=== PATIENT | female | born 1945 | race Caucasian/White ===

== ENCOUNTER 2018-02-15 10:48 | Outpatient (CLI) | payer MEDICARE, BC | END 2018-02-15 10:49 | disposition home or self-care (01) | LOC: BICMAMMO 10:48 | PROVIDERS: ATTEND Internal Medicine Hematology & Oncology | DX: Z12.31 Encounter for screening mammogram for malignant neoplasm of breast (principal); Z85.3 Personal history of malignant neoplasm of breast; Z80.3 Family history of malignant neoplasm of breast | CPT/HCPCS: 77063; 77067 ==

== ENCOUNTER 2019-01-30 12:20 | Outpatient (CLI) | payer MEDICARE, BC ==
--- NOTE | 2019-01-30 14:54 | RAD ---
EXAM: XR Barium Enema Solid Column PROVIDED CLINICAL HISTORY: Incomplete colonoscopy. Rectal bleeding. COMPARISON: None FINDINGS: Resident Services Coordinator image demonstrates a nonspecific bowel gas pattern. Vascular calcifications are seen in the abd ominal aorta and involving the iliac arteries. Mild degenerative changes are seen in the lower lumbar spine. A single contrast barium enema was performed in usual fashion. Contrast was noted to extend to the le titi of the cecum. Scattered colonic diverticuli are seen involving the sigmoid colon. No persistent filling defect or annular constricting lesion is seen within the colon. Postevacuation images demonst rate residual barium throughout the colon. IMPRESSION: 1. Colonic diverticulosis. 2. No annular constricting lesion or definite persisting filling defect is seen throughout the colon.
== END 2019-01-30 12:21 | disposition home or self-care (01) ==
LOC: RAD 12:20
PROVIDERS: ATTEND Internal Medicine Gastroenterology
DX: Z53.9 Procedure and treatment not carried out, unspecified reason (principal); K57.30 Diverticulosis of large intestine without perforation or abscess without bleeding
CPT/HCPCS: 74270

== ENCOUNTER 2019-03-04 11:02 | Outpatient (CLI) | payer MEDICARE, BC ==
--- NOTE | 2019-03-04 12:14 | MMO ---
Bilateral MAMMO Bilat Screen [facility]. CLINICAL HISTORY: Patient is 73 years old and is seen for screening. The patient has the following family history of breast cancer: mother, malignant (generic); paternal grandmother, malignant (generic); paternal aunt, malignant (generic) and niece, malignant (generic). The patient has a history of malignant (generic) at age 63. The patient has a history of bilateral Lumpectomy in October 2000 - Breast cancer. VIEWS: The views performed were: bilateral craniocaudal with tomosynthesis and bilateral mediolateral oblique with tomosynthesis. FILMS COMPARED: The present examination has been compared to prior imaging studies performed at [facility] on 12/04/2014, 01/20/2016, 02/05/2017 and 02/15/2018. This study has been interpreted with the assistance of computer-aided detection. MAMMOGRAM FINDINGS: There are scattered fibroglandular densities. Finding 1: There are areas of architectural distortion with associated post-surgical scars seen in both breasts. Finding 2: There are stable benign appearing calcifications seen in both breasts. There are no suspicious masses, calcifications or areas of architectural distortion. Finding 3: There are benign appearing calcifications seen in both breasts. There are also vascular calcifications. There are no suspicious masses, suspicious calcifications, or new areas of architectural distortion. IMPRESSION: THERE IS NO MAMMOGRAPHIC EVIDENCE OF MALIGNANCY. A ROUTINE FOLLOW-UP MAMMOGRAM IN 1 YEAR IS RECOMMENDED. THE RESULTS OF THIS EXAM WERE SENT TO THE PATIENT. ACR BI-RADS Category 2 - Benign finding MAMMOGRAPHY NOTE: 1. A negative mammogram report should not delay a biopsy if a dominant of clinically suspicious mass is present. 2. Approximately 10% to 15% of breast cancers are not detected by mammography. 3. Adenosis and dense breasts may obscure an underlying neoplasm. Reported by: JOELLE VALDERRAMA MD Electonically Signed: [id number]
== END 2019-03-04 11:03 | disposition home or self-care (01) ==
LOC: BICMAMMO 11:02
PROVIDERS: ATTEND Internal Medicine Hematology & Oncology
DX: Z12.31 Encounter for screening mammogram for malignant neoplasm of breast (principal)
CPT/HCPCS: 77063; 77067

== ENCOUNTER 2019-06-26 12:00 | Inpatient (IN) | payer MEDICARE, BC ==
--- NOTE | 2019-06-27 09:55 | HP ---
HISTORY OF PRESENT ILLNESS: A 73-year-old female who presented with anemia, had a colonoscopy earlier this year, late last year, incomplete due to sigmoid tortuosity and completion barium enema was normal. She had severe iron deficiency anemia and was referred back to Dr. Byrd and performed and the patient has a cecal adenocarcinoma with fungating mass. She has had iron infusion with Dr. Chito wilson3. Pathology reveals moderately differentiated adenocarcinoma of the colon. This is well to moderately differentiated. Plan is to obtain a CAT scan of abdomen and pelvis, chest x-ray, laboratories, and then plan robotic right colectomy. She understands risks and benefits, and consents. We will obtain baseline laboratories. The patient has had preoperative cardiac clearance with Dr. Soares. She is cleared for surgery without further evaluation. The patient is noted to have an echocardiogram in November of 2018, 60% EF, mild MR, normal LA size, normal AV. Left heart catheterization January in 2014, minimal disease. Recent EKG, no acute changes. The patient is asymptomatic from a cardiac standpoint. The patient lives independently, drives and is independently ambulatory. She is accompanied today by her daughter. 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 She has had a thyroidectomy, she is on thyroid replacement. She has had a hysterectomy without oophorectomy. Recent colonoscopy. PAST MEDICAL HISTORY: History of breast cancer, hypertension, depression, thyroid replacement, irritable bowel syndrome. MEDICATIONS: 1. Citrucel twice a day. 2. Suzie aspirin one a day. 3. Atorvastatin 40 mg a day. 4. Amlodipine 5 mg a day. 5. 50 mg twice a day. 6. Losartan potassium 100 mg daily. 7. Levoxyl 100 mg daily. 8. Dicyclomine 10 mg as needed. 9. . REVIEW OF SYSTEMS: Ten-point noncontributory otherwise. PHYSICAL EXAMINATION: VITAL SIGNS: Weight 140 pounds, 5 feet 5 inches, 23 BMI, blood pressure 177/71, pulse 75, 98.4 degrees. HEAD, EARS, EYES, NOSE AND THROAT: Unremarkable. LUNGS: Clear to auscultation. CARDIAC: Regular rate and rhythm without murmur or gallop. ABDOMEN: Soft and nontender. EXTREMITIES: Unremarkable. BREASTS: Without masses. LYMPHATICS: Axilla without lymphadenopathy. Neck and groins without lymphadenopathy. NEUROLOGICAL: Intact. ASSESSMENT AND PLAN: Cecal adenocarcinoma. PLAN: Robotic right colectomy. She understands the risk of infection, bleeding, reoperation, anastomotic leakage, she consents. Job ID: [id number]
[2019-07-09] MEDS ORDERED: Gabapentin 300 MG CAP ONE (11:37)
[2019-07-09] MEDS ORDERED: Acetaminophen 500 MG TAB ONE (11:37)
[2019-07-09] MEDS ORDERED: Ketorolac Tromethamine 30 MG/ML VIAL ONE (11:37)
[2019-07-09] MEDS ORDERED: Meropenem 2 GM, Admixture Fee 1 EACH in Sodium Chloride 0.9% 100 ML IVPB SCH ×2 (11:45→17:30)
[2019-07-09] MEDS ORDERED: Glycopyrrolate 0.2 MG/ML 5 ML SYRINGE ONE (11:55)
[2019-07-09] MEDS ORDERED: Rocuronium Bromide 10 MG/ML (10ML VIAL) ONE (11:55)
[2019-07-09] MEDS ORDERED: EPHEDRINE 25 MG/5 ML SYRINGE ONE (11:55)
[2019-07-09] MEDS ORDERED: Lidocaine 1% PF 5 ML VIAL ONE (11:55)
[2019-07-09] MEDS ORDERED: Ondansetron PF 4 MG/2 ML Vial ONE (11:55)
[2019-07-09] MEDS ORDERED: Dexamethasone 20 MG/5 ML VIAL ONE (11:55)
[2019-07-09] MEDS ORDERED: PROPOFOL 200 MG/20 ML VIAL ONE (11:55)
[2019-07-09] MEDS ORDERED: PHENYLEPHRINE-NS 100 MCG/ML 10 ML SYRINGE ONE ×2 (11:55→16:27)
[2019-07-09] MEDS ORDERED: Bupivacaine HCl 0.5%/Epinephrine 1:200,000/PF 30 ml Vial ONE (11:55)
[2019-07-09] MEDS ORDERED: Lidocaine 2% Jelly 5 ML TUBE ONE (12:35)
[2019-07-09] MEDS ORDERED: Fentanyl 250 MCG/5 ML VIAL ONE (12:35)
[2019-07-09] MEDS ORDERED: Dexamethasone 4 mg/ml Vial ONE (12:48)
[2019-07-09] MEDS ORDERED: Midazolam HCl 2 mg/2 ml Vial ONE (12:48)
[2019-07-09] MEDS ORDERED: Fentanyl 100 MCG/2 ML VIAL ONE (12:48)
[2019-07-09] MEDS ORDERED: Ondansetron HCl/PF 4 MG/2 ML Vial IVP PRN (15:45)
[2019-07-09] MEDS ORDERED: HYDROmorphone 2 MG/ML VIAL SLOW IVP PRN (15:45)
[2019-07-09] MEDS ORDERED: Morphine 2 MG/ML SYRINGE SLOW IVP PRN (18:06)
[2019-07-09] MEDS ORDERED: Morphine 4 MG/ML VIAL SLOW IVP PRN (18:06)
[2019-07-09] MEDS ORDERED: Ibuprofen 600 MG TAB PO PRN (18:11)
[2019-07-09] MEDS ORDERED: cefOXitin Sodium 1 GM in Sodium Chloride 0.9% 100 ML IVPB SCH (20:00)
[2019-07-09] MEDS: cefOXitin Sodium/Dextrose,Iso 1 GM in Premix Bag 1 BAG IVPB SCH (20:54)
[2019-07-09] MEDS: Lactated Ringer's 1,000 ML IV SCH (20:54)
[2019-07-09 21:06] LABS: #Basophils 0.1 thou/uL (0.0-0.2); #Lymphocytes 0.2 thou/uL (1.20-3.40); #Monocytes 0.2 thou/uL (0.11-0.59); %Basophils 0.8 % (0.0-1.0); %Eosinophils 0.1 % (0.0-10.0); %Lymphocytes 1.2 % (21.0-51.0); %Monocytes 1.3 % (0.0-10.0); %Neutrophils 96.6 % (42.0-75.0); Anisocytosis MODERATE=16-30 cells (100X) (0-5/hpf); Helmet Cells SLIGHT = 2-5 cells (100X) (0-1/hpf); Hemoglobin 10.9 g/dL (12.0-16.0); MDiff Complete? YES; Mean Corpuscular HGB CONC 32.3 g/dL (32.0-36.0); Mean Corpuscular Volume 80.4 fL (78.0-98.0); Mean Platelet Volume 10.8 fL (7.4-10.4); Platelet Count 174 thou/uL (130-400); RBC Distribution Width 25.4 % (11.5-14.5); Red Blood Cell (RBC) Count 4.18 mill/uL (4.20-5.40); White Blood Cell (WBC) Count 15.5 thou/uL (4.8-10.8)
[2019-07-09] MEDS: Famotidine 20 MG TAB PO SCH (21:39)
[2019-07-09] MEDS: Ketorolac Tromethamine 30 MG/ML VIAL IVP SCH (23:35)
--- NOTE | 2019-07-10 00:43 | OP ---
DATE OF PROCEDURE: 07/09/2019 PREOPERATIVE DIAGNOSIS: Cecal carcinoma. POSTOPERATIVE DIAGNOSIS: Cecal carcinoma. PROCEDURE PERFORMED: Robot/laparoscopic right colectomy, primary anastomosis, ileocolostomy stapled, also peristaltic. ESTIMATED BLOOD LOSS: 350 mL. BLOOD TRANSFUSE: None. ANESTHESIA: General TAP block. Note, at the end of the operation, there was noted to be some bleeding near the mesentery to the small bowel. Clips applied, accounting for the blood loss. DESCRIPTION OF PROCEDURE: The patient was taken to the operating room, where under general TAP block, Dunne catheter was placed at the beginning of the procedure, left at the end of the operation. Abdomen was prepared with ChloraPrep and draped in routine fashion. Slight leftward tilt positioned and left paraumbilical incision made and pneumoperitoneum to 15 mmHg was obtained with a Veress needle, replaced with a camera port. Left lateral subcostal incision was made and a 15 port placed for the stapler. Left lower quadrant incision was made, and an 8 mm port placed. Drum Barker Operator port, 11 mm port placed in the left lateral abdomen. The robot was docked, positioned, and robot right colectomy undertaken, scoring the peritoneum from the terminal ileum to the proximal transverse colon. The ileocolic pedicle was dissected free and divided with the vessel sealer device on the robot. Once this was divided, the duodenum was kept free of harm. Dissection was carried up to the proximal transverse colon, where dissection circumferentially accomplished, and it was divided with DANIEL blue load stapler and the terminal ileum divided with DANIEL blue load stapler. Right colon was mobilized, freeing its lateral attachments and placed in the right abdomen. The terminal ileum was brought up also peristaltic to the transverse colon and held in position with seromuscular suture of 2-0 Vicryl. Drum Barker Operator held this suture. [id number] anastomosis was accomplished with colotomy, enterotomy with the cutting scissors and staple line position and fired, and once anastomosis had been completed, the common colotomy/enterotomy closed with continuous suture of 3-0 V-Loc suture and then this was locked and then was returned with seromuscular sutures for a second row. Good hemostasis noted and a good closure accomplished. There was noted to be some bleeding and careful inspection revealed there was bleeding from the mesentery of the small bowel clips were applied to gain hemostasis and irrigant evacuated. Good hemostasis ensured. The colon specimen was grasped and a Pfannenstiel incision was made suprapubic, making a transverse incision in the anterior rectus fascia and splitting the rectus muscle laterally, and wound protector placed and the colon brought out, submitted to Pathology. A large cecal tumor was appreciated. Abdominal cavity irrigated. Pneumoperitoneum and irrigant evacuated. Hemostasis noted. Fascia was approximated with continuous suture of 1 PDS. Skin and subcutaneous tissues irrigated. All skin incisions were approximated with subdermal 4-0 Monocryl and [place] glue. Job ID: [id number]
[2019-07-10 01:41] VITALS: BMI 22.6
[2019-07-10] MEDS: cefOXitin Sodium/Dextrose,Iso 1 GM in Premix Bag 1 BAG IVPB SCH ×3 (03:27→20:08)
[2019-07-10] MEDS: Lactated Ringer's 1,000 ML IV SCH ×2 (03:27→09:55)
[2019-07-10] MEDS: Levothyroxine Sodium 100 MCG TAB PO SCH (05:27)
[2019-07-10] MEDS: Ketorolac Tromethamine 30 MG/ML VIAL IVP SCH ×3 (05:28→19:21)
[2019-07-10 06:09] LABS: #Lymphocytes 0.5 thou/uL (1.20-3.40); #Monocytes 0.8 thou/uL (0.11-0.59); #Neutrophils 13.4 thou/uL (1.40-6.50); %Lymphocytes 3.1 % (21.0-51.0); %Monocytes 5.5 % (0.0-10.0); %Neutrophils 91.3 % (42.0-75.0); Hemoglobin 9.8 g/dL (12.0-16.0); Mean Corpuscular HGB CONC 31.8 g/dL (32.0-36.0); Mean Corpuscular Hemoglobin 25.5 pg (27.0-31.0); Mean Corpuscular Volume 80.4 fL (78.0-98.0); Mean Platelet Volume 11.4 fL (7.4-10.4); Platelet Count 154 thou/uL (130-400); RBC Distribution Width 25.2 % (11.5-14.5); Red Blood Cell (RBC) Count 3.83 mill/uL (4.20-5.40); White Blood Cell (WBC) Count 14.6 thou/uL (4.8-10.8)
[2019-07-10] MEDS ORDERED: Sodium Chloride 0.9% 1,000 ML IV SCH (06:30)
[2019-07-10 06:32] LABS: Anion Gap 15 mmol/L (10-20); BUN (Urea Nitrogen) 25 mg/dL (9.8-20.1); Calc. Creatinine Clearance 34 mL/min (70-130); Calcium 8.4 mg/dL (7.8-10.44); Carbon Dioxide 20 mmol/L (23-31); Chloride 107 mmol/L (98-107); Estimated GFR-MDRD 37; Glucose 140 mg/dL (83-110); Potassium 4.6 mmol/L (3.5-5.1); Sodium 137 mmol/L (136-145)
[2019-07-10] MEDS: Famotidine 20 MG TAB PO SCH ×2 (09:53→20:08)
[2019-07-10] MEDS: Enoxaparin Sodium 40 MG/0.4 ML SYRINGE SC SCH (09:53)
[2019-07-10] MEDS: traMADol HCl 50 MG TAB PO PRN ×2 (18:53→22:33)
--- NOTE | 2019-07-10 18:58 | PRG ---
DATE OF SERVICE: 07/10/2019 SUBJECTIVE: Ms. Contreras is doing well today. She is 1 day status post robot right colectomy for cecal tumor. Pathology of course is pending. Temperature 99.2 degrees, pulse 84, blood pressure 136/60. Overnight, her urine output was slightly low at 375. She was given IV fluid bolus this morning. Her urine output is markedly increased and she is voiding frequently spontaneously. Hemoglobin 9.8 and 10.9 yesterday, white count 14.6. Sodium 137, BUN 25, creatinine 1.39, GFR 37. She is tolerating full liquids. She has not passed flatus, but is having some belching. She is not having any nausea or vomiting. OBJECTIVE: LUNGS: Clear to auscultation. CARDIAC: Regular rate and rhythm. No murmur or gallop. ABDOMEN: Soft, mildly tympanitic. Mild distention with tympany. Surgical wounds look healthy. ASSESSMENT AND PLAN: Status post right colectomy, mild dehydration, fluid boluses given. Check renal function tomorrow. We will saline lock at this time and her urine has picked up this afternoon by the time of this dictation after fluid bolus this morning. We will stop her Toradol with her mild renal insufficiency. Job ID: [id number]
[2019-07-10] MEDS: Acetaminophen 500 MG TAB PO PRN (20:08)
[2019-07-11] MEDS: Levothyroxine Sodium 100 MCG TAB PO SCH (05:07)
[2019-07-11] MEDS: Acetaminophen 500 MG TAB PO PRN (05:07)
[2019-07-11 05:28] LABS: #Eosinphils 0.1 thou/uL (0.0-0.7); #Lymphocytes 1.2 thou/uL (1.20-3.40); #Monocytes 0.6 thou/uL (0.11-0.59); %Basophils 0.4 % (0.0-1.0); %Eosinophils 0.8 % (0.0-10.0); %Lymphocytes 11.7 % (21.0-51.0); %Monocytes 5.8 % (0.0-10.0); %Neutrophils 81.3 % (42.0-75.0); Hemoglobin 9.8 g/dL (12.0-16.0); Mean Corpuscular HGB CONC 33.2 g/dL (32.0-36.0); Mean Corpuscular Hemoglobin 26.8 pg (27.0-31.0); Mean Corpuscular Volume 80.8 fL (78.0-98.0); Platelet Count 151 thou/uL (130-400); RBC Distribution Width 25.4 % (11.5-14.5); Red Blood Cell (RBC) Count 3.64 mill/uL (4.20-5.40); White Blood Cell (WBC) Count 9.8 thou/uL (4.8-10.8)
[2019-07-11 05:41] LABS: Anion Gap 7 mmol/L (10-20); BUN (Urea Nitrogen) 15 mg/dL (9.8-20.1); Calc. Creatinine Clearance 51 mL/min (70-130); Calcium 9.1 mg/dL (7.8-10.44); Carbon Dioxide 30 mmol/L (23-31); Chloride 108 mmol/L (98-107); Estimated GFR-MDRD 60; Glucose 106 mg/dL (83-110); Potassium 4.8 mmol/L (3.5-5.1); Sodium 140 mmol/L (136-145)
[2019-07-11] MEDS: Ondansetron PF 4 MG/2 ML Vial IVP PRN ×2 (07:20→14:25)
[2019-07-11] MEDS: Enoxaparin Sodium 40 MG/0.4 ML SYRINGE SC SCH (09:43)
--- NOTE | 2019-07-11 18:16 | PRG ---
DATE OF SERVICE: 07/11/2019 SUBJECTIVE: Nu Contreras is doing well today, although slightly nauseated. She has passed a liquid stool yesterday, but no flatus. She has some distention. After I saw her by the time of this dictation, I received a call from nurse that the patient took home medications in addition to her prescribed home medications in the hospital. These medications have been taken from the patient. OBJECTIVE: VITAL SIGNS: Temperature 98.3 degrees, pulse 87, blood pressure 145/79. LUNGS: Clear to auscultation. CARDIAC: Regular rate and rhythm. No murmur or gallop. ABDOMEN: Soft, mildly distended, mildly tympanitic. Incision looks good. She is status post right colectomy robot for cecal cancer. Pathology is pending. LABORATORY DATA: Today revealed her white count is 9.9, hemoglobin 9.8 which is stable. Her basic metabolic profile is improved. Her acute kidney injury, dehydration has resolved. Her BUN is 15, creatinine 0.91. Her IV fluids were saline lock yesterday and she is urinating quite often. ASSESSMENT AND PLAN: Await better GI function. Anticipate discharge home over the weekend. Job ID: [id number]
[2019-07-11] MEDS ORDERED: Famotidine 20 MG TAB PO SCH (21:00)
[2019-07-12] MEDS: Levothyroxine Sodium 100 MCG TAB PO SCH (05:23)
[2019-07-12] MEDS ORDERED: Enoxaparin Sodium 40 MG/0.4 ML SYRINGE SC SCH (09:00)
[2019-07-12 15:22] VITALS: BP 144/72; TEMP 99
[2019-07-12] MEDS ORDERED: Ibuprofen 600 MG TAB PO PRN (17:20)
--- NOTE | 2019-07-12 19:36 | DIS ---
DATE OF ADMISSION: 07/09/2019 DATE OF DISCHARGE: 07/12/2019 DISCHARGE DIAGNOSES: 1. Cecal cancer, surgical pathology pending. 2. Anemia. Preoperatively, hemoglobin . Prior to that, on June 02, is 7.8. Postoperative hemoglobin 10.9. Discharge hemoglobin 9.8. BLOOD TRANSFUSION: None. FOLLOWUP: 1. Follow up with Dr. Bateman in next week for pathology report and evaluation. 2. Follow up with Dr. Dale in next week to discuss anemia treatment and pathology. Other past history; 1. Significant history of breast cancer, status post partial mastectomy, radiation therapy. 2. Hypertension. 3. Depression. 4. Thyroid replacement. 5. Irritable bowel syndrome. Note, discontinued Amitiza postoperatively. HISTORY: Nu Espinosa presents with anemia, underwent colonoscopy revealing cecal tumor, undergoing bowel prep, undergoing robotic right colectomy. Postoperatively, she did well. Initially, she had a mild ileus and acute kidney injury, both of which improved with time and hydration, and she convalesced, tolerated her diet, had bowel function and discharged home to resume her home medications. She did have an episode of confusion the night prior to discharge. She however had not taken any Ultram or pain medications for 2 days. She was only taking Tylenol and Advil. On admission, she had mild LANA, untreated. This resolved with normal renal function. She is discharged home with hemoglobin of 9.8 and normal renal function with BUN 15, creatinine 0.91. She is to follow up with Dr. Bateman next week for pathology review and Dr. Dale to discuss her anemia treatment and pathology. She is to resume her home medications; 1. Losartan. 2. Levothyroxine. 3. Citrucel. 4. Atorvastatin. 5. Sertraline. 6. Aspirin. 7. Amlodipine. 8. Ibuprofen. 9. Acetaminophen, but to stop her Amitiza. Job ID: [id number]
== END 2019-07-12 18:39 | disposition home or self-care (01) | DRG 330 ==
LOC: EDSTATUS 07-04 12:00 → SURG A 07-09 10:49
PROVIDERS: ADMIT Specialist; ATTEND Specialist
PROC: 0DTF4ZZ Resection of Right Large Intestine, Percutaneous Endoscopic Approach (ICD-10-PCS; principal; 2019-07-09)
PROC: 0D1B4Z4 Bypass Ileum to Cutaneous, Percutaneous Endoscopic Approach (ICD-10-PCS; 2019-07-09)
PROC: 8E0W4CZ Robotic Assisted Procedure of Trunk Region, Percutaneous Endoscopic Approach (ICD-10-PCS; 2019-07-09)
DX: C18.0 Malignant neoplasm of cecum (principal); K56.7 Ileus, unspecified; N17.9 Acute kidney failure, unspecified; I10 Essential (primary) hypertension; F32.9 Major depressive disorder, single episode, unspecified; K58.9 Irritable bowel syndrome, unspecified; E86.0 Dehydration; Z85.3 Personal history of malignant neoplasm of breast; Z90.10 Acquired absence of unspecified breast and nipple; Z79.899 Other long term (current) drug therapy; Z79.890 Hormone replacement therapy
CPT/HCPCS: 36415; 36416; 80048; 85025; 86850; 86900; 86901; J0670; J0694; J1100; J1650; J1885; J2001; J2250; J2405; J2704; J3010

== ENCOUNTER 2019-06-27 05:28 | Outpatient (CLI) | payer MEDICARE, BC ==
[2019-06-27 14:33] LABS: Hemoglobin A1c 4.7 % (4.0-6.0)
[2019-06-27 14:42] LABS: #Eosinphils 0.1 thou/uL (0.0-0.7); #Monocytes 0.5 thou/uL (0.11-0.59); #Neutrophils 7.1 thou/uL (1.40-6.50); %Basophils 0.4 % (0.0-1.0); %Eosinophils 0.9 % (0.0-10.0); %Lymphocytes 11.8 % (21.0-51.0); %Monocytes 5.6 % (0.0-10.0); %Neutrophils 81.4 % (42.0-75.0); Anisocytosis MODERATE=16-30 cells (100X) (0-5/hpf); Hemoglobin 12.1 g/dL (12.0-16.0); Hypochromia SLIGHT = 6-15 cells (100X) (0-5/hpf); MDiff Complete? YES; Mean Corpuscular HGB CONC 32.7 g/dL (32.0-36.0); Mean Corpuscular Hemoglobin 24.9 pg (27.0-31.0); Mean Corpuscular Volume 76.3 fL (78.0-98.0); Mean Platelet Volume 11.9 fL (7.4-10.4); Microcytosis SLIGHT = 6-15 cells (100X) (0-5/hpf); Ovalocytes SLIGHT = 2-5 cells (100X) (0-1/hpf); Platelet Count 210 thou/uL (130-400); Platelet Morphology Comment Appears Adequate; Poikilocytosis SLIGHT = 6-15 cells (100X) (0-5/hpf); RBC Distribution Width 26.3 % (11.5-14.5); Red Blood Cell (RBC) Count 4.84 mill/uL (4.20-5.40); Schistocytes SLIGHT = 2-5 cells (100X) (0-1/hpf); Tear Drops SLIGHT = 2-5 cells (100X) (0-1/hpf); White Blood Cell (WBC) Count 8.7 thou/uL (4.8-10.8)
[2019-06-27 14:48] LABS: ALT (SGPT) 23 U/L (8-55); AST (SGOT) 24 U/L (5-34); Albumin 4.7 g/dL (3.4-4.8); Alkaline Phosphatase 70 U/L (40-110); Anion Gap 13 mmol/L (10-20); BUN (Urea Nitrogen) 16 mg/dL (9.8-20.1); Bilirubin, Total 0.6 mg/dL (0.2-1.2); Calc. Creatinine Clearance 0 mL/min (70-130); Calcium 9.8 mg/dL (7.8-10.44); Carbon Dioxide 27 mmol/L (23-31); Chloride 102 mmol/L (98-107); Estimated GFR-MDRD 60; Globulin 2.4 g/dL (2.4-3.5); Glucose 90 mg/dL (83-110); Potassium 4.5 mmol/L (3.5-5.1); Protein, Total 7.1 g/dL (6.0-8.3); Sodium 137 mmol/L (136-145)
--- NOTE | 2019-06-27 16:41 | RAD ---
PA AND LATERAL CHEST: 06/27/19 HISTORY: Preop. Heart size is within normal limits. There is some atherosclerotic changes of the aorta. The lungs are clear of infiltrates. There is elevation of the right hemidiaphragm. Surgical clips are seen in the left axilla. Linear change in the right base probably related to scar. IMPRESSION: No active intrathoracic disease. POS: [facility]
== END 2019-06-27 05:29 | disposition home or self-care (01) ==
LOC: LABBT 05:28
PROVIDERS: ATTEND Specialist
DX: Z01.818 Encounter for other preprocedural examination (principal); C18.0 Malignant neoplasm of cecum; Z85.3 Personal history of malignant neoplasm of breast; D64.9 Anemia, unspecified
CPT/HCPCS: 71046; 80053; 82378; 83036; 85025

== ENCOUNTER 2019-06-27 14:56 | Outpatient (CLI) | payer MEDICARE, BC ==
[~2019-06-27 14:56] MED LIST: Iopamidol-370 76% 500 ML 1 ML ONE
--- NOTE | 2019-06-27 16:12 | CT ---
EXAM: CT ABDOMEN AND PELVIS HISTORY: Malignant tumor of the cecal COMPARISON: None Correlation: PET imaging 01/25/2016 Procedure: Multiple contiguous axial images were obtained and a CT of the abdomen and pelvis with IV contrast. C oronal reformats were performed. FINDINGS: Lower Chest: Dependent atelectatic change Vessels: Normal caliber aorta. No periaortic fat stranding. Atherosclerosis is noted Heart: Upper normal heart size. No significant pericardial fluid. Abdomen: Portal vein:Patent Gallbladder: No calcified gallstones. Normal caliber wall. Liver: Multiple subcentimeter hypodensities involving the left and right hepatic lobe. Largest hypode nsity in the right hepatic lobe measures 0.7 x 0.8 cm. Correlation made with CT used for attenuation correction previous PET imaging does suggest that at least one of the right hepatic lobe lesions was present. Given the size of the lesion, additional characterization is not possible. No evidence of avascular hepatic mass Pancreas: within normal limits. Spleen: within normal limits. Adrenals: within normal limits. Kidneys: Symmetric enhancement. No obstructive uropathy. Peritoneum: No ascites or free air, no fluid collection. Bowel: Limited evaluation due to the lack of oral contrast administration. No evidence of bowel obstr uction. Abnormal mucosal thickening of the ileocecal junction as well as the cecum. Abnormal mucosal thickening does extend into the terminal ileum. Appendix is difficult to appreciate. Scattere d fecal material in a nondistended, nondilated remaining colon. Diverticulosis in the left hemicolon. Mucosal thickening is presumed to be due to inadequate distention and remote bouts of dive rticulitis. Mesentery and Retroperitoneum: Nonenlarged periaortic and aortocaval lymph nodes. There is an enlarge d, necrotic right abdominal mesenteric lymph node measuring 1.5 x 1.5 cm. Abdominal Wall: Small focal hernia containing mesenteric fat Pelvis: Reproductive Organs: Uterus is surgically absent Pelvis: No mass, lymphadenopathy, free air or free fluid. Bladder: within normal limits. Bones: within normal limits. IMPRESSION: 1. Multiple subcentimeter hypodensities in the liver which are too small to characterize. Findings ma y represent hepatic cysts. However, other etiologies cannot be excluded. The lesions are too small adequately characterize by PET imaging. Follow-up CT is recommended. Conversely, abdomen MRI may be b eneficial. 2. Abnormal mucosa involving the terminal ileum, ileocecal junction and cecum. Neoplasm is favored. C olonoscopy if clinically warranted. 3. Enlarged necrotic right lower quadrant lymph node, worrisome for metastases until proven otherwise .
== END 2019-06-27 14:57 | disposition home or self-care (01) ==
LOC: BICCT 14:56
PROVIDERS: ATTEND Specialist
DX: C18.0 Malignant neoplasm of cecum (principal); K76.89 Other specified diseases of liver; R59.0 Localized enlarged lymph nodes; R93.3 Abnormal findings on diagnostic imaging of other parts of digestive tract
CPT/HCPCS: 71046; 74177; 80053; 82378; 83036; 85025; Q9967

== ENCOUNTER 2019-07-31 09:06 | Outpatient (CLI) | payer MEDICARE, BC ==
--- NOTE | 2019-07-31 15:45 | PET ---
PET CT: HISTORY: A 74-year-old female with moderately differentiated invasive adenocarcinoma of the right colon. Stat us post right hemicolectomy. One of the 16 lymph nodes are positive for metastatic carcinoma. Exam was requested for initial staging. TECHNIQUE: PET scanning with CT attenuation was performed from the base of the brain through the proximal thighs following the intravenous administration of 12 mCi [id number] in the right antecubital f chris. COMPARISON: None. CORRELATION: CT abdomen and pelvis dated 06/27/2019. FINDINGS: No maddison hypermetabolism is seen in the chest, axillae, abdomen, pelvis, or inguinal regions. No hyp ermetabolic pulmonary nodules, liver, adrenal, or skeletal lesions are identified. There is a focal area of increased uptake in the rectosigmoid with an SUV of 6. There is physiologic activity in the GI and tracts and the visualized portions of the brain. The CT scan used for attenuation correction demonstrates a tiny right pleural effusion. No left pleu ral effusion or pericardial effusion is seen. There is a tiny amount of free fluid in the pelvis. IMPRESSION: 1. No evidence of metastatic disease. 2. Focal area of increased fluorodeoxyglucose localization in the rectosigmoid. Correlate with colo noscopy. POS: [facility]
== END 2019-07-31 09:07 | disposition home or self-care (01) ==
LOC: PET 09:06
PROVIDERS: ATTEND Internal Medicine Hematology & Oncology
DX: C18.2 Malignant neoplasm of ascending colon (principal)
CPT/HCPCS: 78815; A9552

== ENCOUNTER 2019-08-08 06:14 | Day surgery (SDC) | payer MEDICARE, BC ==
[2019-08-07 11:44] VITALS: BMI 22.4
[2019-08-08] MEDS ORDERED: Lidocaine 1% w/Epinephrine 1:100K 20 ML VIAL ONE (06:41)
[2019-08-08] MEDS ORDERED: Bupivacaine PF 0.5% 30 ML VIAL ONE (06:41)
[2019-08-08] MEDS ORDERED: Heparin 5,000 UNITS/ML VIAL ONE (06:41)
[2019-08-08] MEDS ORDERED: Fentanyl 100 MCG/2 ML VIAL ONE (06:45)
[2019-08-08] MEDS ORDERED: PROPOFOL 0 ML ONE (06:45)
[2019-08-08] MEDS ORDERED: Propofol 500 MG/50 ML VIAL ONE (06:45)
[2019-08-08] MEDS ORDERED: Midazolam HCl 2 mg/2 ml Vial ONE (07:19)
[2019-08-08] MEDS ORDERED: PROPOFOL 200 MG/20 ML VIAL ONE (08:13)
--- NOTE | 2019-08-08 09:34 | OP ---
DATE OF PROCEDURE: 08/08/2019 PREOPERATIVE DIAGNOSIS: Grade 2 T3N1a moderately differentiated invasive adenocarcinoma, right colon, positive nodes. ANESTHESIA: TIVA, local 0.5% Marcaine 30 mL mixed with 1% Xylocaine with epinephrine 20 mL. PROCEDURE PERFORMED: Right subclavian vein MediPort, Low-profile PowerPort. DESCRIPTION OF PROCEDURE: The patient was taken to the operating room where under intravenous sedation, neck and chest were prepared with ChloraPrep and draped in routine fashion. Local anesthetic was infiltrated in the skin and subcutaneous tissue about the operative site. Trocar catheter introduced, infraclavicular right and good return of venous blood obtained. J-wire threaded, trocar catheter removed. Skin site enlarged sharply using the old scar from the old MediPort previously placed and removed. Incision was carried down to skin and subcutaneous tissue and subcutaneous pocket created with blunt and sharp dissection and dilator and Peel-Away sheath placed over the J-wire into the superior vena cava. Dilator and J-wire were removed. Catheter placed through the Peel-Away sheath. Peel-away sheath removed. Catheter tip was placed in optimal position. Superior vena cava catheter tailored to length, connected to the MediPort and placed in the subcutaneous pocket, secured with 2 interrupted sutures of 3-0 Prolene. Subcutaneous tissue was approximated with 3-0 Monocryl, skin with subdermal 4-0 Monocryl, and [place] glue applied. MediPort accessed with a Bingham needle, aspirated blood and flushed with heparinized saline solution. Good MediPort and catheter placement acknowledged with fluoroscopy at the end of the procedure. The patient tolerated the procedure well. Job ID: [id number]
--- NOTE | 2019-08-08 09:40 | RAD ---
Exam: Chest one view portable: HISTORY: Status post Mediport placement Stable right hemidiaphragm elevation. Right subclavian catheter injection port. Minimal increased josue ear markings particularly in the right base, stable. Left axilla post surgical clips. No pneumothorax or pleural effusion. IMPRESSION: Stable right hemidiaphragm elevation and linear parenchymal changes in the right base. No pneumothora x or pleural effusion post right subclavian catheter placement
== END 2019-08-08 09:45 | disposition home or self-care (01) ==
LOC: SDC 06:14
PROVIDERS: ATTEND Specialist
PROC: 02HV33Z Insertion of Infusion Device into Superior Vena Cava, Percutaneous Approach (ICD-10-PCS; principal; 2019-08-08)
DX: C18.2 Malignant neoplasm of ascending colon (principal); I10 Essential (primary) hypertension; E07.9 Disorder of thyroid, unspecified; Z79.82 Long term (current) use of aspirin; Z79.899 Other long term (current) drug therapy; Z85.3 Personal history of malignant neoplasm of breast; D50.8 Other iron deficiency anemias
CPT/HCPCS: 36561; 71045; C1788; 80053; 82248; 82378; 82728; 83540; 83550; 83615; 84100; 84550; J0690; J1642; J1644; J2250; J2704; J3010; S0020

== ENCOUNTER 2020-03-16 10:25 | Outpatient (CLI) | payer MEDICARE, BC ==
--- NOTE | 2020-03-16 11:47 | MMO ---
Bilateral MAMMO Bilat Screen [facility]. CLINICAL HISTORY: Patient is 74 years old and is seen for screening. The patient has the following family history of breast cancer: mother, malignant (generic); paternal grandmother, malignant (generic); paternal aunt, malignant (generic) and niece, malignant (generic). The patient has a history of malignant (generic) at age 63. The patient has a history of bilateral Lumpectomy in October 2000 - Breast cancer. VIEWS: The views performed were: bilateral craniocaudal with tomosynthesis and bilateral mediolateral oblique with tomosynthesis. FILMS COMPARED: The present examination has been compared to prior imaging studies performed at [facility] on 01/20/2016, 02/05/2017, 02/15/2018 and 03/04/2019. This study has been interpreted with the assistance of computer-aided detection. MAMMOGRAM FINDINGS: There are scattered fibroglandular densities. There are stable post-surgical scars seen in both breasts. There are no suspicious masses, suspicious calcifications, or new areas of architectural distortion. IMPRESSION: THERE IS NO MAMMOGRAPHIC EVIDENCE OF MALIGNANCY. A ROUTINE FOLLOW-UP MAMMOGRAM IN 1 YEAR IS RECOMMENDED. THE RESULTS OF THIS EXAM WERE SENT TO THE PATIENT. ACR BI-RADS Category 2 - Benign finding MAMMOGRAPHY NOTE: 1. A negative mammogram report should not delay a biopsy if a dominant of clinically suspicious mass is present. 2. Approximately 10% to 15% of breast cancers are not detected by mammography. 3. Adenosis and dense breasts may obscure an underlying neoplasm. Reported by: GIANFRANCO BORDEN MD Electonically Signed: [id number]
== END 2020-03-16 10:26 | disposition home or self-care (01) ==
LOC: BICMAMMO 10:25
PROVIDERS: ATTEND Internal Medicine Hematology & Oncology
DX: Z12.31 Encounter for screening mammogram for malignant neoplasm of breast (principal); Z80.3 Family history of malignant neoplasm of breast; Z85.3 Personal history of malignant neoplasm of breast; Z98.890 Other specified postprocedural states
CPT/HCPCS: 77063; 77067

== ENCOUNTER 2020-09-02 22:54 | Emergency (ER) | payer MEDICARE, BC ==
[2020-09-02] MEDS ORDERED: Oxymetazoline HCl 0.05% (30 ML BOT) ONE (23:40)
== END 2020-09-02 23:45 | disposition home or self-care (01) ==
LOC: ERS 22:54
DX: L50.9 Urticaria, unspecified (principal); R09.81 Nasal congestion
CPT/HCPCS: 99282

== ENCOUNTER 2021-06-01 11:06 | Outpatient (CLI) | payer MEDICARE, BC | END 2021-06-01 11:07 | disposition home or self-care (01) | LOC: BICMAMMO 11:06 | PROVIDERS: ATTEND Internal Medicine | DX: Z12.31 Encounter for screening mammogram for malignant neoplasm of breast (principal); Z80.3 Family history of malignant neoplasm of breast; Z85.3 Personal history of malignant neoplasm of breast; Z98.890 Other specified postprocedural states | CPT/HCPCS: 77063; 77067 ==